=== PATIENT | male | born 1980 | race African-American/Black ===

== ENCOUNTER 2016-09-09 21:40 | Emergency (ER) | payer OTHER | END 2016-09-10 00:58 | disposition home or self-care (01) | LOC: ER 21:40 | DX: S93.401A Sprain of unspecified ligament of right ankle, initial encounter (principal); X50.0XXA Overexertion from strenuous movement or load, initial encounter; Y92.39 Other specified sports and athletic area as the place of occurrence of the external cause | CPT/HCPCS: 29515; 73610; 73630; 99070; 99283-25 ==